=== PATIENT | male | born 1975 | race Caucasian/White ===

== ENCOUNTER 2018-11-18 02:44 | Emergency (ER) | payer MEDICAID ==
[~2018-11-18] VITALS: Wt 80.8 kg
[2018-11-18] MEDS ORDERED: ONDANSETRON (ODT) 4 MG TAB ODT STA (04:14)
[2018-11-18] MEDS ORDERED: HYDROCODONE/APAP (5/325) TAB PO ONE (04:30)
[2018-11-18] MEDS ORDERED: SOD CHLORIDE 0.9% 100 ML ONE (05:19)
[2018-11-18] MEDS ORDERED: IOHEXOL 100 ML ONE (05:19)
[2018-11-18] MEDS ORDERED: BENZ-6 PO (06:06)
[2018-11-18] MEDS ORDERED: LEVO750T25 PO (06:06)
[2018-11-18] MEDS ORDERED: PROM6.2515 PO (06:06)
[2018-11-18 06:28] VITALS: BP 119/75; PULSE 76; RESP 20
[2018-11-18] MEDS ORDERED: CEFTRIAXONE 1 GM INJ IM ONE (06:30)
[2018-11-18] MEDS ORDERED: LIDOCAINE 1% (MPF) 5 ML VIAL INJ ONE (06:30)
--- NOTE | 2018-11-27 06:07 | ERD ---
ER Documentation Chief Complaint Chief Complaint r side chest wall/ rib pain HPI 43-year-old male presenting with chest wall pain on the right side times 1 week. Patient was seen at [facility] given azithromycin for pneumonia. He states he has a productive cough and he had tactile fevers today. He denies any shortness of breath but does have some pain with deep breaths. Denies any leg swelling. Denies other medical problems. NKDA. Surgical history is appendectomy. Social history smokes 4 cigarettes a day. ROS All systems reviewed and are negative except as per history of present illness. Medications Home Meds Active Scripts Benzonatate* (Tessalon Perle*) 100 Mg Capsule, 100 MG PO Q8H PRN for COUGH, #30 CAP Prov:IVORY GUERRERO PA-C 11/18/18 Promethazine Hcl* (Promethazine Hcl* Syrup) 6.25 Mg/5 Ml Syrup, 6.25 MG PO Q6H PRN for COUGH, #100 ML Prov:IVORY GUERRERO PA-C 11/18/18 Levofloxacin* (Levaquin*) 750 Mg Tablet, 750 MG PO DAILY for 7 Days, TAB Prov:IVORY GUERRERO PA-C 11/18/18 Allergies Allergies: Coded Allergies: No Known Allergy (Unverified , 02/18/12) PMhx/Soc Medical and Surgical Hx: pt denies Medical Hx History of Surgery: Yes (appendectomy) Anesthesia Reaction: No Hx Neurological Disorder: No Hx Respiratory Disorders: No Hx Cardiac Disorders: No Hx Psychiatric Problems: No Hx Miscellaneous Medical Probl: No Hx Alcohol Use: Yes (social) Hx Substance Use: No Hx Tobacco Use: No Smoking Status: Current every day smoker FmHx Family History: No diabetes, No coronary disease, No other Physical Exam Physical Exam GENERAL: The patient is well-appearing, well-nourished, in no acute distress HEENT: Atraumatic. Conjunctivae are pink. Pupils equal, round, and reactive to light. There is no scleral icterus. Tympanic membranes clear bilaterally. Oropharynx clear. No nystagmus or photophobia. NECK: C-spine is soft and supple. There is no meningismus. There is no cervical lymphadenopathy. CHEST: Clear to auscultation bilaterally. There are no rales, wheezes or rhonchi. HEART: Regular rate and rhythm. No murmurs, clicks, rubs or gallops. No S3 or S4. Results 24 hrs Laboratory Tests Test 11/18/18 02:30 11/18/18 03:30 Urine Color YELLOW Urine Clarity CLEAR Urine pH 5.0 Urine Specific [place] 1.014 Urine Ketones NEGATIVE mg/dL Urine Nitrite NEGATIVE mg/dL Urine Bilirubin NEGATIVE mg/dL Urine Urobilinogen NEGATIVE mg/dL Urine Leukocyte Esterase NEGATIVE Jarad/ul Urine Hemoglobin NEGATIVE mg/dL Urine Glucose NEGATIVE mg/dL Urine Total Protein NEGATIVE mg/dl White Blood Count 9.7 10^3/ul Red Blood Count 4.32 10^6/ul Hemoglobin 13.8 g/dl Hematocrit 40.7 % Mean Corpuscular Volume 94.2 fl Mean Corpuscular Hemoglobin 31.9 pg Mean Corpuscular Hemoglobin Concent 33.9 g/dl Red Cell Distribution Width 12.0 % Platelet Count 279 10^3/UL Mean Platelet Volume 10.3 fl Immature Granulocytes % 0.300 % Neutrophils % 57.9 % Lymphocytes % 21.7 % Monocytes % 11.2 % Eosinophils % 8.1 % Basophils % 0.8 % Nucleated Red Blood Cells % 0.0 /100WBC Immature Granulocytes # 0.030 10^3/ul Neutrophils # 5.6 10^3/ul Lymphocytes # 2.1 10^3/ul Monocytes # 1.1 10^3/ul Eosinophils # 0.8 10^3/ul Basophils # 0.1 10^3/ul Nucleated Red Blood Cells # 0.0 10^3/ul D-Dimer 890.86 ng/ml D-Dimer Comment Sodium Level 141 mmol/L Potassium Level 4.1 mmol/L Chloride Level 107 mmol/L Carbon Dioxide Level 27 mmol/L Anion Gap 7 Blood Urea Nitrogen 12 mg/dl Creatinine 0.73 mg/dl Est Glomerular Filtrat Rate mL/min > 60 mL/min Glucose Level 108 mg/dl Lactic Acid Level 0.7 mmol/L Calcium Level 9.0 mg/dl Total Bilirubin 0.2 mg/dl Direct Bilirubin 0.00 mg/dl Indirect Bilirubin 0.2 mg/dl Aspartate Amino Transf (AST/SGOT) 24 IU/L Alanine Aminotransferase (ALT/SGPT) 22 IU/L Alkaline Phosphatase 102 IU/L Troponin I < 0.012 ng/ml Total Protein 7.7 g/dl Albumin 4.0 g/dl Globulin 3.70 g/dl Albumin/Globulin Ratio 1.08 Lipase 100 U/L Current Medications Medications Dose Sig/Arcadio Start Time Status Last (Trade) Ordered Route PRN Stop Time Admin Dose Reason Admin 1 tab ONCE ONCE 11/18/18 DC 11/18/18 Acetaminophen PO 04:30 11/18/18 04:25 / 04:31 Hydrocodone Bitart ([place] (5/325)) Ondansetron 4 mg ONCE STAT 11/18/18 DC 11/18/18 HCl (Zofran ODT 04:14 11/18/18 04:25 Odt) 04:15 IV Flush 10 ml STK-MED 11/18/18 DC 11/18/18 (NS 10 ml) ONCE .ROUTE 05:19 11/18/18 05:32 05:20 Sodium 100 ml @ ud STK-MED 11/18/18 DC 11/18/18 Chloride ONCE .ROUTE 05:19 11/18/18 05:32 05:20 Iohexol 100 ml @ ud STK-MED 11/18/18 DC 11/18/18 ONCE .ROUTE 05:19 11/18/18 05:32 05:20 Ceftriaxone 1 gm ONCE ONCE 11/18/18 DC 11/18/18 Sodium IM 06:30 11/18/18 06:16 (Rocephin) 06:31 Lidocaine 5 ml ONCE ONCE 11/18/18 DC 11/18/18 (Xylocaine INJ 06:30 11/18/18 06:15 1% (Mpf)) 06:31 Procedures/MDM DIAGNOSTIC IMAGING REPORT Patient: JANIYA DON : 1975 Age: 43 Sex: M MR #: [id number] DOS: 11/18/18 0314 Ordering MD: TAMAR GUERRERO PA-C Location: [facility] Room/Bed: PROCEDURE: XR Chest. CLINICAL INDICATION: Cough. Chest pain. TECHNIQUE: Portable single view of the chest COMPARISON: None. FINDINGS: There is patchy infiltrate at the right base with small right pleural effusion. The left lung and pleural space appear clear. The heart size and mediastinal contours are within normal limits for portable AP technique. Osseous structures are intact. IMPRESSION: Right base infiltrate and small right pleural effusion, which may be on the basis of pneumonia in the appropriate setting. Follow-up is recommended to ensure clearing. DIAGNOSTIC IMAGING REPORT Patient: JANIYA DON : 1975 Age: 43 Sex: M MR #: [id number] DOS: 11/18/18 0433 Ordering MD: TAMAR GUERRERO PA-C Location: [facility] Room/Bed: AMENDMENT: 11/18/2018 6:06:32 AM Johnathon Navarrete Md Addendum report: Impression: 1. No evidence of a pulmonary embolism. RPTAT: HRSR PROCEDURE: CT ANGIOGRAM CHEST, PULMONARY EMBOLISM PROTOCOL CLINICAL INDICATION: Chest pain and shortness of breath. Evaluate for PE. TECHNIQUE: CT pulmonary angiogram of the chest was performed. Coronal and sagittal reformatted images were obtained from the axial source images. Images were revi ewed on a high-resolution PACS workstation. 3-D post processing was performed. Maximum intensity projection images were reconstructed on PACS. DICOM images are available. Intravenous Contrast Medium Administered: 100 mL of Omnipaque 350 Image acquisition by series (and radiation doses in CTDIvol): 35.21, 12.10 mGy. Estimated cumulative dose or total wfgq-[id number] (DLP) is: 493.35 mGy-cm. Cardiac Gating: None. One or more of the following dose reduction techniques were used: - Automated exposure control. - Adjustment of the mA and/or kV according to patient size. - Use of iterative reconstruction technique. COMPARISON: None available. FINDINGS: CARDIOVASCULAR: Diagnostic quality: Contrast opacification of the pulmonary arterial circulation is adequate for assessment of pulmonary embolism. Study is not significantly limited by respiratory motion artifact. Pulmonary arteries: No filling defects to suggest pulmonary embolism to the level of the subsegmental branches of the pulmonary arteries. Not enlarged. Heart: No interventricular septal deviation. Normal in size. No significant coronary artery calcification. No significant valvular calcification. Pericardium: No pericardial effusion. Thoracic aorta: No significant abnormality. There is no aortic atherosclerotic calcification. REMAINING CHEST: Medical devices: None. Thyroid: Normal. Lymph nodes: No supraclavicular, axillary, mediastinal, or hilar lymphadenopathy. Other mediastinal structures: No significant abnormality. Airways: Narrowing of the right lower lobe bronchus by enlarged inferior right hilar lymphadenopathy measuring 2.5 x 3.0 cm (AP, transverse). Enlarged lower right paratracheal lymph node measuring 12 mm in short axis. Lung parenchyma: Anterior right lower lobe mass or focal consolidation measuring 3.1 x 3.2 cm (AP, transverse). Right lower lobe pneumonia and atelectasis. Subsegmental atelectasis or scar of the lingula. Dependent subsegmental atelectasis of the left lower lobe. Mosaic appearance of the right posterior upper and right lower lobes with considerations including obstructive small airway disease, vascular occlusive disease, and infection. Pleura: Moderate right pleural effusion. Chest wall: No significant abnormality. Upper abdomen: No significant abnormality. Musculoskeletal: No acute fracture. No suspicious bone lesions. IMPRESSION: 1. evidence of a pulmonary embolus. 2. Anterior right lower lobe mass or focal consolidation measuring 3.1 x 3.2 cm (AP, transverse). 3. Moderate right-sided pleural effusion with right lower lobe pneumonia and atelectasis. 4. Enlarged right inferior hilar lymphadenopathy measuring 2.5 x 3.0 cm resulting in narrowing of the right lower lobe bronchus. 5. Enlarged lower right paratracheal lymph node measuring 12 mm in short axis. 6. Mosaic appearance of the parenchyma involving the posterior right upper and right lower lobes. Considerations include obstructive small airway disease, vascular occlusive disease, and infection. EKG: Rate/Rhythm: 90 bpm. Normal Sinus Rhythm QRS, ST, T-waves: No changes consistent w/ acute ischemia Impression: No evidence of ischemia or arrhythmia MDM: 43-year-old male presenting with chest wall pain. Patient does have pneumonia. I have low suspicion for PE. I have low suspicion for cardiac emergency. Patient's antibiotics will be changed and he will also be discharged with supportive medications. I have low suspicion for sepsis. Patient is discharged with strict ER precautions and recommended to return immediately to the ER symptoms change or worsen. All questions answered at discharge Departure Diagnosis: Primary Impression: Pneumonia Condition: Stable Patient Instructions: Pneumonia Referrals: COMM[facility] YOU HAVE RECEIVED A MEDICAL SCREENING EXAM AND THE RESULTS INDICATE THAT YOU DO NOT HAVE A CONDITION THAT REQUIRES URGENT TREATMENT IN THE EMERGENCY DEPARTMENT. FURTHER EVALUATION AND TREATMENT OF YOUR CONDITION CAN WAIT UNTIL YOU ARE SEEN IN YOUR DOCTORS OFFICE WITHIN THE NEXT 1-2 DAYS. IT IS YOUR RESPONSIBILITY TO MAKE AN APPOINTMENT FOR FOLOW-UP CARE. IF YOU HAVE A PRIMARY DOCTOR --you should call your primary doctor and schedule an appointment IF YOU DO NOT HAVE A PRIMARY DOCTOR YOU CAN CALL OUR PHYSICIAN REFERRAL HOTLINE AT IF YOU CAN NOT AFFORD TO SEE A PHYSICIAN YOU CAN CHOSE FROM THE FOLLOWING [facility] CL[facility] [address] [facility] [address] [facility] [facility] [address] [facility] [address] [facility] [address] [facility]. [facility]. [address] Additional Instructions: FOLLOW UP WITH YOUR PRIMARY CARE PHYSICIAN TOMORROW.Return to this facility if you are not improving as expected. IVORY GUERRERO PA-C Nov 27, 2018 06:07
== END 2018-11-18 06:40 | disposition home or self-care (01) ==
LOC: FTE 02:44
DX: R07.81 Pleurodynia (principal); F17.210 Nicotine dependence, cigarettes, uncomplicated
CPT/HCPCS: 36415; 71045; 71275; 80053; 81003; 83605; 83690; 84484; 85025; 85378; 93005; 96372; J0696; Q9967; Z7502; Z7610

== ENCOUNTER 2019-01-15 05:46 | Emergency (ER) | payer MEDICAID ==
[~2019-01-15] VITALS: Ht 180.3 cm; Wt 78.8 kg
[~2019-01-15 05:46] MED LIST: BENZ-6 PO; LEVO750T25 PO; PROM6.2515 PO
[2019-01-15 05:56] VITALS: Ht 180.3 cm; Wt 78.8 kg
[2019-01-15] MEDS ORDERED: AZITHROMYCIN 250 MG TAB PO ONE (07:00)
[2019-01-15] MEDS ORDERED: HYDROCODONE/APAP (10/325) TAB PO ONE (07:00)
[2019-01-15] MEDS ORDERED: ONDANSETRON (ODT) 4 MG TAB ODT STA (07:00)
[2019-01-15] MEDS ORDERED: AZIT250T PO (07:49)
[2019-01-15] MEDS ORDERED: IBUP-1542 PO (07:49)
--- NOTE | 2019-01-15 07:51 | ERD ---
ER Documentation Chief Complaint Chief Complaint chest pain/cough x 3 months, worse tonite HPI Patient is a 43-year-old male who has a growth in his lung who presents with chest pain and cough. The symptoms started in October. He had more pain today so he came to the emergency department. He had slight fever at home. He has trinh d no treatment for pain today. He has a plan for a lung biopsy but this is scheduled 1 month from now. He was diagnosed with pneumonia in November and was given Levaquin. Upon review of old medical records this is the patient's third visit to the ER since 2011. The patient does not currently have a primary doctor. He does not have an oncologist. ROS All systems reviewed and are negative except as per history of present illness. Medications Home Meds Active Scripts Ibuprofen* (Motrin*) 600 Mg Tab, 600 MG PO Q6H PRN for PAIN AND OR ELEVATED TEMP, #30 TAB Prov:HÉCTOR HALL MD 01/15/19 Azithromycin* (Zithromax*) 250 Mg Tablet, 250 MG PO DAILY for 4 Days, TAB Prov:HÉCTOR HALL MD 01/15/19 Benzonatate* (Tessalon Perle*) 100 Mg Capsule, 100 MG PO Q8H PRN for COUGH, #30 CAP Prov:IVORY GUERRERO PA-C 11/18/18 Promethazine Hcl* (Promethazine Hcl* Syrup) 6.25 Mg/5 Ml Syrup, 6.25 MG PO Q6H PRN for COUGH, #100 ML Prov:IVORY GUERRERO PA-C 11/18/18 Levofloxacin* (Levaquin*) 750 Mg Tablet, 750 MG PO DAILY for 7 Days, TAB Prov:IVORY GUERRERO PA-C 11/18/18 Allergies Allergies: Coded Allergies: No Known Allergy (Unverified , 02/18/12) PMhx/Soc History of Surgery: Yes (appendectomy) Anesthesia Reaction: No Hx Neurological Disorder: No Hx Respiratory Disorders: No Hx Cardiac Disorders: No Hx Psychiatric Problems: No Hx Miscellaneous Medical Probl: No Hx Alcohol Use: Yes (social) Hx Substance Use: No Hx Tobacco Use: No Smoking Status: Never smoker FmHx Family History: No diabetes Physical Exam Vitals Vital Signs Date Temp Pulse Resp B/P (MAP) Pulse Ox O2 O2 Flow FiO2 Time Delivery Rate 01/15/19 84 18 124/84 98 Room Air 08:45 (97) 01/15/19 99.2 99 18 116/80 97 05:56 (92) Physical Exam Const: Mild distress Head: Atraumatic Eyes: Normal Conjunctiva ENT: Normal External Ears, Nose and Mouth. Neck: Full range of motion. No meningismus. Resp: Decreased breath sounds right lower lobe Cardio: Regular rate and rhythm, no murmurs Abd: Soft, non tender, non distended. Normal bowel sounds Skin: No petechiae or rashes Back: No midline or flank tenderness Ext: No cyanosis, or edema Neur: Awake and alert Psych: Normal Mood and Affect Result Diagram: 01/15/1963901/15/19 06 Results 24 hrs Laboratory Tests Test 01/15/19 06:40 White Blood Count 10.4 10^3/ul Red Blood Count 4.61 10^6/ul Hemoglobin 13.9 g/dl Hematocrit 42.6 % Mean Corpuscular Volume 92.4 fl Mean Corpuscular Hemoglobin 30.2 pg Mean Corpuscular Hemoglobin Concent 32.6 g/dl Red Cell Distribution Width 12.5 % Platelet Count 297 10^3/UL Mean Platelet Volume 10.3 fl Immature Granulocytes % 0.500 % Neutrophils % 74.3 % Lymphocytes % 13.2 % Monocytes % 10.5 % Eosinophils % 1.1 % Basophils % 0.4 % Nucleated Red Blood Cells % 0.0 /100WBC Immature Granulocytes # 0.050 10^3/ul Neutrophils # 7.8 10^3/ul Lymphocytes # 1.4 10^3/ul Monocytes # 1.1 10^3/ul Eosinophils # 0.1 10^3/ul Basophils # 0.0 10^3/ul Nucleated Red Blood Cells # 0.0 10^3/ul Sodium Level 141 mmol/L Potassium Level 3.9 mmol/L Chloride Level 106 mmol/L Carbon Dioxide Level 25 mmol/L Anion Gap 10 Blood Urea Nitrogen 8 mg/dl Creatinine 0.55 mg/dl Est Glomerular Filtrat Rate mL/min > 60 mL/min Glucose Level 108 mg/dl Calcium Level 9.4 mg/dl Troponin I < 0.012 ng/ml Current Medications Medications Dose Sig/Arcadio Start Time Status Last (Trade) Ordered Route PRN Stop Time Admin Dose Reason Admin 500 mg ONCE ONCE 01/15/19 DC 01/15/19 Azithromycin PO 07:00 01/15/19 07:05 (Zithromax) 07:01 1 tab ONCE ONCE 01/15/19 DC 01/15/19 Acetaminophen PO 07:00 01/15/19 07:05 / 07:01 Hydrocodone Bitart ([place] (10/325)) Ondansetron 4 mg ONCE STAT 01/15/19 DC 01/15/19 HCl (Zofran ODT 07:00 01/15/19 07:05 Odt) 07:01 Procedures/MDM EKG read by me: Rate/Rhythm: Regular rate and rhythm at a rate of 91 Intervals: Normal Impression: No evidence of ischemia or arrhythmia Chest X-ray 1V Interpreted by me: Soft Tissue: No acute abnormalities Bones: No acute abnormalities Mediastinum/Cardiac Silhouette/Lungs: Right lower lobe pneumonia Patient is a 43-year-old male who is a previous smoker who quit in November who presents with cough and chest pain. EKG shows no signs of ischemia and I doubt acute coronary syndrome. I doubt pneumothorax, pulmonary embolism, or aortic dissection. I do believe there may be a postobstructive pneumonia and I would treat with Zithromax for 5 days. The patient's vital signs are normal in the emergency department. I do believe the patient likely has a lung mass and given his smoking history could be lung cancer. I told him he will need a biopsy as soon as possible but does not need to be admitted to the hospital at this time. I will give him information for Dr. Donald so that he can see an oncologist as well. He should follow-up within 24-48 hours. He can return for any worsening symptoms. The patient understands the plan and is okay for discharge at this time. Departure Diagnosis: Primary Impression: Chest pain Chest pain type: unspecified Qualified Codes: R07.9 - Chest pain, unspec ified Additional Impression: Pneumonia Pneumonia type: due to unspecified organism Laterality: right Lung location: lower lobe of lung Qualified Codes: J18.1 - Lobar pneumonia, unspecified organism Condition: Fair Patient Instructions: Lung Biopsy, Chest Pain, Uncertain Cause, Pneumonia (Adult) Referrals: SAMEERA DONALD M.D. Additional Instructions: Specialist:Usted tiene dafne condicin mdica que requiere que nicole a un especialista dentro de los prximos 1-2 dumont.POR FAVOR,CON GUTIERRES SEGUIMIENTO DE PRIMARIA PHSICIAN refferal. SI USTED NO TIENE UN MDICO GENERAL Y / O USTED NO PUEDE PAGAR rufus a un mdico,los siguientes morales RECURSOS sido suministrado a usted. ES GUTIERRES RESPONSABILIDAD PARA SER VISTOS POR EL ESPECIALISTA: HÉCTOR HALL MD Jan 15, 2019 07:51
[2019-01-15 08:45] VITALS: BP 124/84; PULSE 84; RESP 18
== END 2019-01-15 08:48 | disposition home or self-care (01) ==
LOC: E/R 05:46
DX: J18.1 Lobar pneumonia, unspecified organism (principal)
CPT/HCPCS: 36415; 71045; 80048; 84484; 85025; 93005; Z7502; Z7610